=== PATIENT | male | born 1955 | race African-American/Black ===

== ENCOUNTER 2017-11-02 18:28 | Emergency (ER) | payer MEDICARE, MEDICAID ==
[~2017-11-02] VITALS: Ht 175.3 cm; Wt 80.0 kg
[2017-11-02] MEDS ORDERED: METF-816 PO (18:35)
[2017-11-02] MEDS ORDERED: BRIM10DR2 EACHEYE (18:35)
[2017-11-02] MEDS ORDERED: FLUORESCEIN SODIUM 1MG/STRIP OP ONE (19:45)
[2017-11-02] MEDS ORDERED: TETRACAINE 0.5% OPHTH DROPS 4ML OP ONE (19:45)
[2017-11-02 22:50] VITALS: BP 110/65
== END 2017-11-02 23:03 | disposition home or self-care (01) ==
LOC: ER 18:28
DX: S00.12XA Contusion of left eyelid and periocular area, initial encounter (principal); E11.9 Type 2 diabetes mellitus without complications; R03.0 Elevated blood-pressure reading, without diagnosis of hypertension; Z98.49 Cataract extraction status, unspecified eye; Y00.XXXA Assault by blunt object, initial encounter; Y93.89 Activity, other specified; Y92.488 Other paved roadways as the place of occurrence of the external cause
CPT/HCPCS: 70450; 70486; 99284

== ENCOUNTER 2025-02-11 22:06 | Emergency (ER) | payer MEDICAID ==
[~2025-02-11] VITALS: Ht 180.3 cm; Wt 80.0 kg
[~2025-02-11 22:06] MED LIST: BRIM10DR2 EACHEYE; METF-1150 PO
[2025-02-11 22:18] VITALS: O2SAT 100
[2025-02-12] MEDS ORDERED: [UNRECOGNIZED DRUG - CODE] OP (00:16)
[2025-02-12 00:57] VITALS: BP 112/52; PULSE 80; RESP 12; TEMP 36.9; O2SAT 100
== END 2025-02-12 00:57 | disposition home or self-care (01) ==
LOC: ER 22:06
DX: H57.11 Ocular pain, right eye (principal); E11.9 Type 2 diabetes mellitus without complications; Z88.2 Allergy status to sulfonamides
CPT/HCPCS: 99283